=== PATIENT | male | born 1985 | race Hispanic/Latino ===

== ENCOUNTER 2025-03-11 04:02 | Emergency (ER) | payer SELFPAY ==
[2025-03-11] MEDS ORDERED: HYDROmorphone 0.5 MG/0.5 ML SYRINGE ONE (04:33)
[2025-03-11] MEDS ORDERED: Ondansetron PF 4 MG/2 ML Vial ONE (04:33)
[2025-03-11 04:38] LABS: Glucose, Urine (Dipstick) Normal (Negative); Leukocyte Negative (Negative); Protein, Urine (Dipstick) 30 mg/dl (Neg-Trace); Specific Gravity, Urine 1.015 (1.005-1.030)
[2025-03-11 04:42] LABS: #Basophils 0.04 10x3/uL (0.0-0.2); #Eosinophils 0.17 10x3/uL (0.0-0.5); #Monocytes 1.00 10x3/uL (0.0-1.1); #Neutrophils 13.30 10x3/uL (1.5-8.4); %Basophils 0.2 % (0.0-2.0); %Eosinophils 1.1 % (0.0-6.0); %Lymphocytes 9.8 % (18.0-47.0); %Monocytes 6.2 % (0.0-10.0); %Neutrophils 82.4 % (40.0-75.0); Hematocrit 40.4 % (38.8-50.0); Hemoglobin 13.2 g/dL (13.5-17.5); Mean Corpuscular Hemoglobin 29.8 pg (27.0-33.0); Mean Corpuscular Volume 91.2 fL (81.2-95.1); Platelet Count 353 10x3/uL (150-450); Red Blood Cell (RBC) Count 4.43 10x6/uL (4.32-5.72); White Blood Cell (WBC) Count 16.15 10x3/uL (3.5-10.5)
[2025-03-11 04:45] LABS: Bacteria/HPF None Seen HPF (None Seen); CAUTI Indications for Culture Dysuria,urgency,freq; WBC/HPF 0-3 HPF (0-3)
[2025-03-11 04:46] LABS: Urine Culture Reflex No No
[2025-03-11 04:56] LABS: ALT (SGPT) 26 U/L (Less than 45); AST (SGOT) 40 U/L (11-34); Albumin 4.4 g/dL (3.1-4.5); Alkaline Phosphatase 67 U/L (40-110); Anion Gap 11 mmol/L (10-20); BUN (Urea Nitrogen) 10 mg/dL (8.9-20.6); Bilirubin, Total 0.2 mg/dL (0.3-1.2); Calc. Creatinine Clearance 0 mL/min (70-130); Calcium 9.4 mg/dL (7.8-10.44); Carbon Dioxide 28 mmol/L (22-29); Chloride 101 mmol/L (98-107); Globulin 3.1 g/dL (2.4-3.5); Glucose 113 mg/dL (70-105); Lipase 60 U/L (8-78); Potassium 4.0 mmol/L (3.5-5.1); Sodium 136 mmol/L (136-145)
[2025-03-11] MEDS ORDERED: Ketorolac Tromethamine 30 MG (1 mL) VIAL ONE (06:26)
[2025-03-11] MEDS ORDERED: Iopamidol 300 61% 100 ML VIAL FS ONE (10:17)
== END 2025-03-11 06:50 | disposition home or self-care (01) ==
LOC: CSHERS 04:02
DX: N13.2 Hydronephrosis with renal and ureteral calculous obstruction (principal)
CPT/HCPCS: 74177; 80053; 81001; 83690; 85025; 96374; 96375; J1171; J1885; J2405; Q9967